=== PATIENT | female | born 1965 | race Caucasian/White ===

== ENCOUNTER 2017-02-14 12:56 | Emergency (ER) | payer OTHER ==
[~2017-02-14 12:56] MED LIST: ACETAMINOPHEN325 MG PO; BENADRYL25 MG PO; PAXIL20 MG PO; PERCOCET 5-3251 EACH PO; TOPAMAX50 MG PO; ZYRTEC10 MG PO
== END 2017-02-14 15:44 | disposition home or self-care (01) ==
LOC: FER 12:56
DX: S61.211A Laceration without foreign body of left index finger without damage to nail, initial encounter (principal); F41.9 Anxiety disorder, unspecified; F32.9 Major depressive disorder, single episode, unspecified; Z79.899 Other long term (current) drug therapy; W26.8XXA Contact with other sharp object(s), not elsewhere classified, initial encounter; Y92.009 Unspecified place in unspecified non-institutional (private) residence as the place of occurrence of the external cause
CPT/HCPCS: 99282